=== PATIENT | female | born 1980 | race Caucasian/White ===

== ENCOUNTER 2022-03-10 12:49 | Emergency (ER) | payer OTHER, SELFPAY ==
[2022-03-10 13:20] VITALS: BP 148/83; PULSE 76; RESP 18; TEMP 36.2; O2SAT 100; BMI 30.9
[2022-03-10 14:25] LABS: Add Manual Diff / Slide Review NO; Basophils Absolute Auto 100 /uL (0-100); Eosinophils Absolute Auto 100 /uL (0-450); Eosinophils Percent Auto 1.8 % (2-4); Hematocrit 22.7 % (36-46); Hemoglobin 7.1 g/dL (12.0-16.0); Lymphocytes Absolute Auto 1600 /uL (1100-4500); Lymphocytes Percent Auto 21.9 % (25-40); Mean Corpuscular Volume 61.2 fL (80-100); Monocytes Absolute Auto 600 /uL (0-900); Monocytes Percent Auto 8.3 % (3-14); Neutrophils Absolute Auto 5000 /uL (1500-7000); Platelet Count 407 X10^3/uL (150-400); Red Blood Cell Count 3.72 X10^6/uL (4.0-5.2); Red Cell Distribution Width 19.9 % (11.6-14.8); White Blood Cell Count 7.5 X10^3/uL (4.5-11.0)
[2022-03-10 14:32] LABS: Alanine Aminotransferase 15 IU/L (<35); Albumin 4.5 g/dL (3.5-5.0); Albumin Globulin Ratio 1.4 (1.0-2.8); Alkaline Phosphatase 59 U/L (38-126); Aspartate Aminotransferase 26 IU/L (14-36); BUN Creatinine Ratio 11.9 (6-22); Bilirubin Total 0.5 mg/dL (0.2-1.3); Blood Urea Nitrogen 10 mg/dL (7-17); Calcium 9.3 mg/dL (8.4-10.2); Carbon Dioxide 25 mmol/L (22-32); Chloride 102 mmol/L (98-107); Estimated Glomerular Filt Rate > 60 mL/min (>60); Globulin 3.2 g/dL (1.7-4.1); Glucose 95 mg/dL (70-100); HEMOLYSIS < 15 (0-50); Lipase 46 U/L (23-300); Potassium 3.8 mmol/L (3.4-5.1); Sodium 137 mmol/L (137-145); Total Protein 7.7 g/dL (6.3-8.2)
[2022-03-10 14:44] LABS: Anisocytosis 1+; Poikilocytosis 1+
[2022-03-10 14:59] VITALS: BP 124/79; PULSE 84; RESP 14; O2SAT 100
--- NOTE | 2022-03-10 15:14 | DI.US.S_ITS ---
PROCEDURE: US PELVIC COMPLETE INDICATIONS: pelvic pain, severe anemia. not TECHNIQUE: Real-time scanning was performed of the pelvic organs, with image documentation. Additional endovaginal scanning was necessary due to incomplete visualization of the adnexal and endometrial structures by transabdominal scanning. COMPARISON: None. FINDINGS: Uterus: Uterus is retroverted and enlarged in size at 16.3 x 8.5 x 8.8 cm. The uterus is heterogeneous, with a 7.9 cm fibroid seen. The endometrial stripe is not well seen, secondary to the fibroid. Incidental note is made of nabothian cysts. A mild amount of anechoic cervical fluid can be seen. Ovaries: The right ovary measures 4 x 3.6 x 1.9 cm, with a calculated ovarian volume of 14 point cc. The left ovary measures 22.7 x 1.7 x 1.4 cm, with a calculated ovarian volume of 3.3 cc. The ovaries have a normal sonographic appearance, with a dominant follicle seen involving the right ovary, which is considered to be within physiologic limits. No adnexal masses are seen. Less than 12 follicles can be seen involving each ovary. Normal appearing arterial and venous waveforms are confirmed to each ovary. Other: No pathologic free abdominal or pelvic fluid. IMPRESSION: Negative for ovarian torsion. Enlarged uterus with a 7.9 cm fibroid. We strive to produce accurate, complete, and clear reports of imaging services. To assist us in improving patient care, this report was composed using standard report templates and voice recognition software. Therefore, it may contain abnormal punctuation, insertions and/or omissions. Occasional wrong-word or sound-alike substitutions may occur. Though we review the report and make efforts to correct it, we do recommend that the report be read carefully in proper context to recognize any text inaccuracies. Dictated by: Robbie Ryder M.D. on 03/10/2022 at 16:34 Approved by: Robbie Ryder M.D. on 03/10/2022 at 16:38
--- NOTE | 2022-03-10 15:24 | ED.ABDPAIN ---
HPI - Abdominal Pain <Stefan Santos PA-C - Last Filed: 03/10/22 17:48> General Chief Complaint: Abdominal Pain Stated Complaint: Abd & lower back pain/blader problems Time Seen by Provider: 03/10/22 14:40 Source: patient Mode of arrival: Family Vehicle History of Present Illness HPI narrative: Patient is a 41-year-old female who presents emergency room today with complaint pain with urinating pain with intercourse lower abdominal pain and mild periodic leakage of urine for about 2 months. States the main issue today because of lower abdominal pain increased yesterday. Last menstrual period started on the this month and last pelvic exam was about a year and half ago. Is sexually active and denies history or UTI kidney stones or abdominal pain. Denies chest pain shortness of breath fever chills or nausea vomiting. Also denies any additional symptoms. Related Data Previous Rx's Medication Instructions Recorded naproxen 500 mg tablet (Naprosyn) 500 mg PO BID #60 tabs 03/10/22 Allergies Allergy/AdvReac Type Severity Reaction Status Date / Time No Known Drug Allergies Allergy Verified 03/10/22 13:39 Review of Systems <Stefan Santos PA-C - Last Filed: 03/10/22 17:48> Review of Systems Narrative: R.O.S.: General: No fever, chills or fatigue. Cardiovascular: No chest pain or palpitations Respiratory: No S.O.B. HEENT: No congestion, ear pain, rhinorrhea, sore throat or tinnitus Gastrointestinal: No nausea or vomiting /Pelvic: Pain with urinating pain with intercourse and lower abdominal pain for about 2 months then increased yesterday. Skin: No rash or associated abnormalities Musculoskeletal: No pain in muscles or joints, no limitation of range of motion, no paresthesia or numbness. ?? Neurological: Awake, alert and in not apparent distress. No Headaches, changes in vision or other related neurological concerns. Patient History <ELISHA Grande Last Filed: 03/10/22 17:48> Social History Smoking Status: Former smoker Smoking Status: Former smoker tobacco type: cigarettes alcohol intake frequency: a few times a month Substance Use Type: does not use Exam <ELISHA Grande Last Filed: 03/10/22 17:48> Narrative Exam Narrative: Physical Exam: ? General: normal appearance, well developed, well nourished, alert, and awake. Not in acute distress. ? Head: Normocephalic, no lesions. Chest: Lungs CTAB, no rales, rhonchi or wheezes. ?? Heart: RRR, no murmurs, rubs or gallops. Eyes: PERRLA, EOM's full, conjunctivae clear. ? Neuro: Physiological, no localizing findings, CN3-12 intact. ?? Extremities: Warm, well perfused, FROM, no deformities, no edema. Pelvic: Pelvic exam done by Dr Fields?? Skin: Normal, no rashes, no lesions noted. ?? PSYCHIATRIC: The mood is good, no blunted affect. Speech is clear. Thought process is linear, thought content is appropriate. The voice is without significant inflection. Gastrointestinal: Soft; NT; ND; Pos BS with Neg. rebound tenderness. No scars or major deformities noted on Visual Inspection. Initial Vital Signs Initial Vital Signs: Vital Signs Temperature 97.2 F L 03/10/22 13:20 Pulse Rate 76 03/10/22 13:20 Respiratory Rate 18 03/10/22 13:20 Blood Pressure 148/83 H 03/10/22 13:20 Pulse Oximetry 100 03/10/22 13:20 Oxygen Delivery Method 03/10/22 13:20 <Cassie Fields MD - Last Filed: 03/10/22 18:03> Narrative Exam Narrative: Physical Exam: ? General: normal appearance, well developed, well nourished, alert, and awake. Not in acute distress. ? Head: Normocephalic, no lesions. Chest: Lungs CTAB, no rales, rhonchi or wheezes. ?? Heart: RRR, no murmurs, rubs or gallops. Eyes: PERRLA, EOM's full, conjunctivae clear. ? Neuro: Physiological, no localizing findings, CN3-12 intact. ?? Extremities: Warm, well perfused, FROM, no deformities, no edema. Pelvic: Pelvic exam done by Dr Fields?? Skin: Normal, no rashes, no lesions noted. ?? PSYCHIATRIC: The mood is good, no blunted affect. Speech is clear. Thought process is linear, thought content is appropriate. The voice is without significant inflection. Gastrointestinal: Soft; NT; ND; Pos BS with Neg. rebound tenderness. No scars or major deformities noted on Visual Inspection. DR Fields: Pelvic exam Normal external genitalia. No significant vaginal discharge. No tenderness at vaginal introitus. No bladder tenderness. No cervical motion tenderness. Significantly enlarged uterus 16-18 weeks in size. Initial Vital Signs Initial Vital Signs: Vital Signs Temperature 97.2 F L 03/10/22 13:20 Pulse Rate 76 03/10/22 13:20 Respiratory Rate 18 03/10/22 13:20 Blood Pressure 148/83 H 03/10/22 13:20 Pulse Oximetry 100 03/10/22 13:20 Oxygen Delivery Method 03/10/22 13:20 Course <Stefan Santos PA-C - Last Filed: 03/10/22 17:48> Orders Ordered: ED Orders 03/10/22 14:15 Complete Blood Count AUTO DIFF Stat Comprehensive Metabolic Panel Stat Lipase Stat 03/10/22 15:14 US pelvic complete Stat 03/10/22 16:00 Chlamydia Gonorrhea PCR -URINE Stat 03/10/22 16:01 Wet Prep Tric BV Awilda Stat Vital Signs Vital signs: Vital Signs - 8 hr 03/10/22 13:20 03/10/22 14:59 03/10/22 17:32 Temperature 97.2 F L Pulse Rate 76 84 68 Respiratory Rate 18 14 14 Blood Pressure 148/83 H 124/79 137/68 Pulse Oximetry 100 100 100 Oxygen Delivery Method Room Air Room Air Room Air <Cassie Fields MD - Last Filed: 03/10/22 18:03> Orders Ordered: ED Orders 03/10/22 14:15 Complete Blood Count AUTO DIFF Stat Comprehensive Metabolic Panel Stat Lipase Stat 03/10/22 15:14 US pelvic complete Stat 03/10/22 16:00 Chlamydia Gonorrhea PCR -URINE Stat 03/10/22 16:01 Wet Prep Tric BV Awilda Stat Vital Signs Vital signs: Vital Signs - 8 hr 03/10/22 13:20 03/10/22 14:59 03/10/22 17:32 Temperature 97.2 F L Pulse Rate 76 84 68 Respiratory Rate 18 14 14 Blood Pressure 148/83 H 124/79 137/68 Pulse Oximetry 100 100 100 Oxygen Delivery Method Room Air Room Air Room Air MDM - Abdominal Pain <Stefan Santos PA-C - Last Filed: 03/10/22 17:48> Lab Data Result diagrams: 03/10/22 14:15 03/10/22 14:15 Labs: Lab Results 03/10/22 03/10/22 Range/Units 14:15 14:15 WBC 7.5 (4.5-11.0) X10^3/uL RBC 3.72 L (4.0-5.2) X10^6/uL Hgb 7.1 L (12.0-16.0) g/dL Hct 22.7 L (36-46) % MCV 61.2 L (80-100) fL MCH 19.0 L (26-34) PG MCHC 31.0 (30-36) % RDW 19.9 H (11.6-14.8) % Plt Count 407 H (150-400) X10^3/uL Neut % (Auto) 67.0 (50-75) % Lymph % (Auto) 21.9 L (25-40) % [place] % (Auto) 8.3 (3-14) % Eos % (Auto) 1.8 L (2-4) % Baso % (Auto) 1.0 (0-2) % Neut # (Auto) 5000 (6698-6792) /uL Lymph # (Auto) 1600 (8091-1698) /uL [place] # (Auto) 600 (0-900) /uL Eos # (Auto) 100 (0-450) /uL Baso # (Auto) 100 (0-100) /uL RBC Morphology Not Reportable Poikilocytosis 1+ H Anisocytosis 1+ H Sodium 137 (137-145) mmol/L Potassium 3.8 (3.4-5.1) mmol/L Chloride 102 (98-107) mmol/L Carbon Dioxide 25 (22-32) mmol/L BUN 10 (7-17) mg/dL Creatinine 0.84 (0.52-1.04) mg/dL Estimated GFR > 60 (>60) mL/min BUN/Creatinine Ratio 11.9 (6-22) Glucose 95 (70-100) mg/dL Calcium 9.3 (8.4-10.2) mg/dL Total Bilirubin 0.5 (0.2-1.3) mg/dL AST 26 (14-36) IU/L ALT 15 (<35) IU/L Alkaline Phosphatase 59 (38-126) U/L Total Protein 7.7 (6.3-8.2) g/dL Albumin 4.5 (3.5-5.0) g/dL Globulin 3.2 (1.7-4.1) g/dL Albumin/Globulin Ratio 1.4 (1.0-2.8) Lipase 46 (23-300) U/L Point of care testing: Point of Care Testing Test Results Negative Urine Dip Bedside Urine Glucose Negative Bedside Urine Bilirubin - Negative Bedside Urine Ketone - Negative Urine Specific [place] 1.010 Bedside Urine Occult Blood - Negative Bedside Urine pH 6.0 Bedside Urine Protein - Negative Bedside Urine Urobilinogen - Negative Bedside Urine Nitrite - Negative Bedside Urine Leukocytes - Negative Esterase MDM Narrative Medical decision making narrative: Patient is a 41-year-old female a complaint increased abdominal pain that started this weekend and has not painful urination and was normal and a and low back pain. Patient states she is sexually active and her last pelvic exam was about a year and a half ago. Patient admits that her last menstrual period started on the of this month. Denies any discharge or abnormal smells or urine. Pelvic exam was done by Dr. Tracy. Abdominal ultrasound was done and revealed enlarged uterus and the uterine fibroid. She was discharged and referred to OBGYN and [place] and the positions. She was also given the contact information. Patient agrees this plan <Cassie Fields MD - Last Filed: 03/10/22 18:03> Lab Data Labs: Lab Results 03/10/22 03/10/22 Range/Units 14:15 14:15 WBC 7.5 (4.5-11.0) X10^3/uL RBC 3.72 L (4.0-5.2) X10^6/uL Hgb 7.1 L (12.0-16.0) g/dL Hct 22.7 L (36-46) % MCV 61.2 L (80-100) fL MCH 19.0 L (26-34) PG MCHC 31.0 (30-36) % RDW 19.9 H (11.6-14.8) % Plt Count 407 H (150-400) X10^3/uL Neut % (Auto) 67.0 (50-75) % Lymph % (Auto) 21.9 L (25-40) % [place] % (Auto) 8.3 (3-14) % Eos % (Auto) 1.8 L (2-4) % Baso % (Auto) 1.0 (0-2) % Neut # (Auto) 5000 (8698-5773) /uL Lymph # (Auto) 1600 (1777-4784) /uL [place] # (Auto) 600 (0-900) /uL Eos # (Auto) 100 (0-450) /uL Baso # (Auto) 100 (0-100) /uL RBC Morphology Not Reportable Poikilocytosis 1+ H Anisocytosis 1+ H Sodium 137 (137-145) mmol/L Potassium 3.8 (3.4-5.1) mmol/L Chloride 102 (98-107) mmol/L Carbon Dioxide 25 (22-32) mmol/L BUN 10 (7-17) mg/dL Creatinine 0.84 (0.52-1.04) mg/dL Estimated GFR > 60 (>60) mL/min BUN/Creatinine Ratio 11.9 (6-22) Glucose 95 (70-100) mg/dL Calcium 9.3 (8.4-10.2) mg/dL Total Bilirubin 0.5 (0.2-1.3) mg/dL AST 26 (14-36) IU/L ALT 15 (<35) IU/L Alkaline Phosphatase 59 (38-126) U/L Total Protein 7.7 (6.3-8.2) g/dL Albumin 4.5 (3.5-5.0) g/dL Globulin 3.2 (1.7-4.1) g/dL Albumin/Globulin Ratio 1.4 (1.0-2.8) Lipase 46 (23-300) U/L Point of care testing: Point of Care Testing Test Results Negative Urine Dip Bedside Urine Glucose Negative Bedside Urine Bilirubin - Negative Bedside Urine Ketone - Negative Urine Specific [place] 1.010 Bedside Urine Occult Blood - Negative Bedside Urine pH 6.0 Bedside Urine Protein - Negative Bedside Urine Urobilinogen - Negative Bedside Urine Nitrite - Negative Bedside Urine Leukocytes - Negative Esterase Imaging Data pelvic ultrasound: Radiologist's Impression: FINDINGS:? ?? Uterus:? Uterus is retroverted and enlarged in size at 16.3 x 8.5 x 8.8 cm.? The uterus is heterogeneous, with a 7.9 cm fibroid seen.? The endometrial stripe is not well seen, secondary to the fibroid. Incidental note is made of nabothian cysts.? A mild amount of anechoic cervical fluid can be seen. ? Ovaries:? The right ovary measures 4 x 3.6 x 1.9 cm, with a calculated ovarian volume of 14 point cc. The left ovary measures 22.7 x 1.7 x 1.4 cm, with a calculated ovarian volume of 3.3 cc. The ovaries have a normal sonographic appearance, with a dominant follicle seen involving the right ovary, which is considered to be within physiologic limits.? No adnexal masses are seen.? Less than 12 follicles can be seen involving each ovary.? ? ? Normal appearing arterial and venous waveforms are confirmed to each ovary.? ? Other:? No pathologic free abdominal or pelvic fluid. ? ? IMPRESSION:? Negative for ovarian torsion. ? Enlarged uterus with a 7.9 cm fibroid. ? ? We strive to produce accurate, complete, and clear reports of imaging services. To assist us in improving patient care, this report was composed using standard report templates and voice recognition software. Therefore, it may contain abnormal punctuation, insertions and/or omissions. Occasional wrong-word or sound-alike substitutions may occur. Though we review the report and make efforts to correct it, we do recommend that the report be read carefully in proper context to recognize any text inaccuracies. ? ? Dictated by: Robbie Ryder M.D. on 03/10/2022 at 16:34 ? ? MDM Narrative Medical decision making narrative: Patient is a 41-year-old female a complaint increased abdominal pain that started this weekend and has not painful urination and was normal and a and low back pain. Patient states she is sexually active and her last pelvic exam was about a year and a half ago. Patient admits that her last menstrual period started on the 13th of this month. Denies any discharge or abnormal smells or urine. Pelvic exam was done by Dr. Tracy. Patient is examined and lab results reviewed. She shows significant microcytic anemia with hemoglobin at 7.1 with hemodynamic stability suggesting chronic and ongoing blood loss with physiologic adaptations. She also complains of urinary incontinence worsening over the last 2 months that seems to be on associated with any precipitated findings. Specifically is not urge or stress related. Some days is not a problem at all and other days simply walking across the house she finds that she is leaking urine. Uterus is significantly enlarged, 16 weeks in size with 8 cm fibroid centrally interrupting endometrial stripe. Gonorrhea and chlamydia are pending, moderate clue cells occasional yeast and no Trichomonas appreciated on wet prep. Will ask her to follow-up with OBGYN. Recommended Naprosyn b.i.d. for pelvic pain and to try and prevent quite as much bleeding during her menstrual cycles. Questions answered and she is safe for discharge home Discharge Plan Departure Patient Disposition: Home Clinical Impression: Bulky or enlarged uterus, Microcytic anemia, Pelvic pain Fibroid, uterine Qualifiers: Uterine leiomyoma location: unspecified location Qualified Code(s): D25.9 - Leiomyoma of uterus, unspecified Urinary incontinence Qualifiers: Urinary Incontinence type: unspecified incontinence Qualified Code(s): R32 - Unspecified urinary incontinence Instructions: DI for Uterine Fibroids Activity Restrictions/Additional Instructions: Thank you for coming in today You have a very enlarged uterus and a large uterine fibroid. This is likely causing the low pelvic pain that you are experiencing. The fibroid is in the center of your uterus and involves the endometrial lining which likely explains the heavy menses that you have been having. With these very heavy menses you have become significantly anemic. You need to follow-up with Dr. Cristina or 1 of her partners in our OBGYN clinic. Please call the clinic tomorrow at [phone] explain that you were in the emergency department, diagnosed with significantly enlarged uterus, uterine fibroids and significant anemia and need to be seen for consultation. In the meantime, please use Naprosyn twice a day for pelvic cramping and please make sure that you take this twice a day on a scheduled basis starting the day prior to your menses and continuing through your cycle. The Naprosyn has been electronically transmitted to [facility] in [place] Doing all you can to increase iron with iron supplementations, green leafy vegetables and animal protein will all be helpful. Iron is best absorbed with and acid environment. If your taking iron supplements taking them with orange juice will help with overall absorption. Regarding your urinary incontinence, I suspect that it is related to your enlarged uterus and would encourage you to discuss that with the OBGYN as well. I wish you well Prescriptions: New naproxen [Naprosyn] 500 mg tablet 500 mg PO BID Qty: 60 0RF Referrals: Natty Cristina MD [Physician] - Taryn Murray MD [Physician] - Visit Report Forms: Patient Portal/API
[2022-03-10 17:32] VITALS: BP 137/68; PULSE 68; RESP 14; O2SAT 100
[2022-03-10 18:24] LABS: Urine N gonorrhoeae NOT DETECTED
[2022-03-10 18:37] LABS: Urine Chlamydia NOT DETECTED
== END 2022-03-10 17:55 | disposition home or self-care (01) ==
PROVIDERS: Emergency Medicine; Emergency Provider Physician Assistant
DX: R10.2 Pelvic and perineal pain (principal); D25.9 Leiomyoma of uterus, unspecified; R32 Unspecified urinary incontinence; N85.2 Hypertrophy of uterus; D50.9 Iron deficiency anemia, unspecified
CPT/HCPCS: 36415; 76830; 76856; 80053; 81003; 81025; 83690; 85025; 87210; 87491; 87591; 93975; 99283; 99284

== ENCOUNTER → 2022-04-22 10:38 | Outpatient (CLI) | payer OTHER, SELFPAY ==
[2022-04-22 12:36] LABS: Add Manual Diff / Slide Review NO; Basophils Absolute Auto 0 /uL (0-100); Basophils Percent Auto 0.4 % (0-2); Eosinophils Absolute Auto 100 /uL (0-450); Eosinophils Percent Auto 1.5 % (2-4); Hematocrit 29.4 % (36-46); Lymphocytes Absolute Auto 1700 /uL (1100-4500); Lymphocytes Percent Auto 18.4 % (25-40); Mean Corpuscular HGB Conc 30.7 % (30-36); Mean Corpuscular Hemoglobin 20.9 PG (26-34); Mean Corpuscular Volume 68.1 fL (80-100); Monocytes Absolute Auto 600 /uL (0-900); Monocytes Percent Auto 6.2 % (3-14); Neutrophils Absolute Auto 6700 /uL (1500-7000); Neutrophils Percent Auto 73.5 % (50-75); Platelet Count 434 X10^3/uL (150-400); Red Blood Cell Count 4.31 X10^6/uL (4.0-5.2); Red Cell Distribution Width 26.5 % (11.6-14.8); White Blood Cell Count 9.1 X10^3/uL (4.5-11.0)
[2022-04-22 13:13] LABS: Anisocytosis 3+; Hypochromasia 2+; Platelet Estimate Increased on smear; Poikilocytosis 3+
[2022-04-22 14:23] LABS: TSH w/ Reflex to FT4 1.21 uIU/mL (0.47-4.68)
== END ==
PROVIDERS: PCP Student in an Organized Health Care Education/Training Program; Referring Provider Obstetrics & Gynecology; Visit Provider Obstetrics & Gynecology
DX: D64.9 Anemia, unspecified (principal); N92.0 Excessive and frequent menstruation with regular cycle
CPT/HCPCS: 36415; 84443; 85025

== ENCOUNTER → 2022-10-29 14:12 | Outpatient (CLI) | payer OTHER, SELFPAY ==
[2022-10-29 15:33] LABS: Add Manual Diff / Slide Review NO; Basophils Absolute Auto 0 /uL (0-100); Basophils Percent Auto 0.5 % (0-2); Eosinophils Absolute Auto 200 /uL (0-450); Hematocrit 31.5 % (36-46); Hemoglobin 10.3 g/dL (12.0-16.0); Lymphocytes Absolute Auto 2300 /uL (1100-4500); Lymphocytes Percent Auto 27.9 % (25-40); Mean Corpuscular HGB Conc 32.6 % (30-36); Mean Corpuscular Hemoglobin 25.6 PG (26-34); Mean Corpuscular Volume 78.7 fL (80-100); Monocytes Absolute Auto 600 /uL (0-900); Monocytes Percent Auto 7.1 % (3-14); Neutrophils Absolute Auto 5000 /uL (1500-7000); Neutrophils Percent Auto 61.5 % (50-75); Platelet Count 387 X10^3/uL (150-400); Red Blood Cell Count 4.01 X10^6/uL (4.0-5.2); Red Cell Distribution Width 16.1 % (11.6-14.8); White Blood Cell Count 8.1 X10^3/uL (4.5-11.0)
== END ==
PROVIDERS: PCP Student in an Organized Health Care Education/Training Program; Referring Provider Obstetrics & Gynecology; Visit Provider Obstetrics & Gynecology
DX: D50.0 Iron deficiency anemia secondary to blood loss (chronic) (principal); N94.6 Dysmenorrhea, unspecified
CPT/HCPCS: 36415; 85025

== ENCOUNTER 2022-11-08 08:18 | Day surgery (SDC) | payer OTHER, SELFPAY ==
[2022-11-06 10:19] VITALS: BMI 33.1
[2022-11-08] VITALS (8 sets, daily range): BP systolic 97–141; BP diastolic 40–87; PULSE 64–84; RESP 13–18; TEMP 36.1–36.8; O2SAT 95–100; BMI 33.1
--- NOTE | 2022-11-08 | PATH_ITS ---
[facility] Accession Number: [id number] No. of containers..01 Tissue . 01 Material submitted: . uterus - BILATERAL FALLOPIAN TUBES,AND UTERUS . 01 Diagnosis: Bilateral Fallopian Tube And Uterus, Supracervical Hysterectomy and Bilateral Salpingectomy: Proliferative endometrium; no atypical hyperplasia and no malignancy. Benign leiomyomata. Complete cross-section of fimbriated bilateral fallopian tubes with no significant diagnostic alterations. [facility] 11/15/2022 1024 Local . 01 Electronically signed: . Suzy Salazar MD, Pathologist NPI- [id number] . 01 Gross description: . The specimen is received in formalin labeled with the patient's name, , and bilateral fallopian tubes and uterus, and consists of a disrupted uterus weighing 357 g and aggregating to 15.4 x 15.2 x 8.5 cm with attached fimbriated fallopian tube (5.3 x 1.0 cm) and detached fimbriated fallopian tube (3.7 x 0.8 cm) with no cervix or additional adnexa identified. The serosa is can and wrinkled with no evidence of hemorrhage or adhesion. The endometrium is can and velvety and averages 0.1 cm thick. The myometrium is can and trabecular with multiple whorled areas and several well-circumscribed nodules measuring up to 1.2 cm in greatest dimension with no hemorrhage or necrosis identified. The attached fimbriated fallopian tube has can, smooth serosa with a cystic structure near the fimbriated end measuring 0.4 cm in greatest dimension. Sectioning reveals an unremarkable stellate lumen. The detached fallopian tube has can, smooth serosa with no cystic structures identified. Sectioning reveals an unremarkable stellate lumen. [employer] sections are submitted as follows: A1: Possible full-thickness section. A2: Endometrium. A3-A4: Business Line Manager whorled areas and nodules. A5: Serosa. A6: Attached fallopian tube to include one-half of bisected fimbriae and cross sections. A7: Detached fallopian tube to include one-half of bisected fimbriae and cross sections. ([id number]) /FRR 11/13/2022 0313 Local . 01 Pathologist provided ICD-10: D25.9, N92.1 . 01 CPT . 965843 Specimen Comment: A courtesy copy of this report has been sent to [phone] Performed at: 01 [facility] [address] [place] [address], [place], [place] [id number] MD Ilya Stoll MD Phone: [phone]
[2022-11-08] MEDS: CEFAZOLIN 2 GM/100 ML PREMIX 100 ML IV (10:04)
--- NOTE | 2022-11-08 10:17 | PM.PREOP ---
Pre-operative Note COVID-19 Criteria for continued procedure: Delay expected to result in less-positive ultimate med/surg outcome Interval Note History & Physical reviewed/Exam performed by Physician: Yes Changes to H&P: No H&P completed within 30 days and has changed as indicated here:: 10/29/22
[2022-11-08 10:23] LABS: Add Manual Diff / Slide Review NO; Basophils Absolute Auto 100 /uL (0-100); Basophils Percent Auto 1.1 % (0-2); Eosinophils Absolute Auto 100 /uL (0-450); Eosinophils Percent Auto 2.5 % (2-4); Hematocrit 30.8 % (36-46); Lymphocytes Absolute Auto 1700 /uL (1100-4500); Lymphocytes Percent Auto 29.3 % (25-40); Mean Corpuscular HGB Conc 32.4 % (30-36); Mean Corpuscular Hemoglobin 25.4 PG (26-34); Mean Corpuscular Volume 78.3 fL (80-100); Monocytes Absolute Auto 400 /uL (0-900); Monocytes Percent Auto 6.6 % (3-14); Neutrophils Absolute Auto 3600 /uL (1500-7000); Neutrophils Percent Auto 60.5 % (50-75); Platelet Count 382 X10^3/uL (150-400); Red Blood Cell Count 3.94 X10^6/uL (4.0-5.2); Red Cell Distribution Width 16.5 % (11.6-14.8); White Blood Cell Count 5.9 X10^3/uL (4.5-11.0)
--- NOTE | 2022-11-08 10:57 | SUR.OPER ---
Lithotomy on padded OR bed. [place] Pad Positioner under torso. Head on pillow, arms padded and tucked at sides. Legs secured in padded yellow fins stirrups.
[2022-11-08] MEDS: BUPIVACAINE 0.5% (PF) 30 ML, EPINEPHrine 0.15 MG INJ (11:18)
[2022-11-08] MEDS: LACTATED RINGERS 1,000 ML 100 ML IV (11:28)
[2022-11-08] MEDS: ROPIVACAINE 0.2% PF 2 MG/ML 20ML AMP 20 ML INJ (11:34)
--- NOTE | 2022-11-08 12:28 | PM.GYNOP.1 ---
Operative Date/Time/Diagnoses Date of procedure: 11/08/22 Time of procedure: 12:28 Pre-op diagnosis: Enlarged fibroid uterus Pelvic pain Post-op diagnosis: same Procedure & Clinicians Procedure: Procedures Operation Date: 11/08/22 10:15 Actual Procedure Side Surgeon p Laparoscopy, Diagnostic, CARPET JACK, poss. [facility] , poss. bilateral salpingectomy, poss. open KAILA Natty Cristina MD Indications: Enlarged fibroid uterus Pelvic pain Surgeon: Natty Cristina Human Resources Operations Manager: Litzy Tobar Anesthesia Type: General and Local Operative Notes Findings: 16 week size fibroid uterus Fundus to anterior abdominal wall thick adhesion Normal tubes and ovaries Normal liver Normal appendix Closure Type: primary Specimen(s): left tube, right tube and uterus Applied: catheter (Removed at the end of the case) Estimated blood loss (mL): 100 Blood products transfused: none Procedure in detail: The patient was taken to the operating room where she was placed in the dorsal supine position. After adequate general endotracheal anesthesia was achieved, she was placed in the dorsal lithotomy position, and prepped and draped in the usual sterile fashion. A timeout was performed. A bivalve speculum was placed into the vagina and the anterior lip of the cervix grasped with a single-tooth tenaculum. The cervical os was sequentially dilated until the ZUMI uterine manipulator could pass easily into the endometrial cavity. The single-tooth tenaculum was removed from the anterior lip of the cervix, and the bivalve speculum was removed from the vagina. Attention was then turned to the abdomen where 6 mL of half percent Marcaine with epinephrine were injected above the umbilical fold. A 5 mm incision was made. The veress needle was placed into the peritoneal cavity, and its placement confirmed by aspiration and drop test. The veress needle was removed. A 5 mm trocar was placed without difficulty. 2 other incisions were made 4 cm lateral to the umbilicus after 5 mL of half percent Marcaine with epinephrine were injected. These were 5 mm incisions. Two, 5 mm trocars were placed under direct visualization. Using the Powerseal, the thick adhesion between the uterus and anterior abdominal wall was taken down with the Powerseal with cautery and cut. Hemostasis was achieved. The right tube was grasped with an atraumatic grasper. Using the Powerseal, the mesosalpinx was cauterized and cut all the way down to the cornua of the uterus. The cornua of the uterus was then grasped with an atraumatic grasper. The utero-ovarian ligaments were cauterized and cut. The round ligament and broad ligament were cauterized and cut. Hemostasis was achieved. The bladder flap was created using the Powerseal with cautery and cut long-term across. The uterine arteries on the right side were extensively cauterized. All of this was repeated on the left side. The remainder of the bladder flap was created using the Powerseal, and the bladder taken down off the lower uterine segment and cervix. Using the Linaloop, the cervix was amputated from the uterus 2 cm above the uterosacral ligaments, after the ZUMI uterine manipulator was removed from the uterus and a moistened sponge stick was placed in the vagina. There was a small amount of bleeding noted from the posterior edge of the cervix, and this was cauterized for hemostasis. 6 mL of half percent Marcaine with epinephrine were injected thru the previous Pfannenstiel incision. A 12mm incision was made. A 12 mm trocar was placed under direct visualization. The trocar was removed. An Endobag was placed through the suprapubic incision and the uterus and tubes were placed into the Endobag. The edges of the endobag were brought through the skin. The uterus was grasped with a Doug. An Ze was placed into the endobag. The uterus was morcellated in 2 pieces. The tubes were also removed. The Endobag and Ze were removed from the peritoneal cavity. The fascia was closed with 0-vicryl in a running fashion. The abdomen was reinsufflated. The pelvis was copiously irrigated with warm normal saline. No bleeding was noted. 20 mL of 0.2% ropivacaine were placed over the pelvic pedicles. The instruments were removed from the abdomen. The CO2 was allowed to escape. The subcutaneous layer on the lower incision was closed with 2 simple interrupted sutures with 2-0 vicryl. All of the incisions were closed with 4-0 Biosyn in a subcuticular fashion. Steri strips and Allevyn dressings were placed. The moistened sponge stick was removed from the vagina. Sponge, lap, and instrument counts were correct x 2. The patient tolerated the procedure well, was taken to PACU in stable condition. Complications: none Post-operative Condition: stable Disposition: PACU Plan for aftercare: Home after recovery
[2022-11-08] MEDS: OXYCODONE/ACETAMINOPHEN 5/325 TABLET 1 TAB PO (12:29)
--- NOTE | 2022-11-08 13:29 | SUR.PHASEII ---
Patient ambulating to the bathroom independently and voided small amount of clear yellow urine. Discharged home with in stable condition.
== END 2022-11-08 13:30 | disposition home or self-care (01) ==
LOC: OR 08:20 → AC 08:20
PROVIDERS: PCP Student in an Organized Health Care Education/Training Program; Referring Provider Obstetrics & Gynecology; Visit Provider Obstetrics & Gynecology
PROC: 0UT94ZL Resection of Uterus, Supracervical, Percutaneous Endoscopic Approach (ICD-10-PCS; CPT 58542; principal; 2022-11-08 10:15)
DX: D25.9 Leiomyoma of uterus, unspecified (principal); N92.1 Excessive and frequent menstruation with irregular cycle; N73.6 Female pelvic peritoneal adhesions (postinfective)
CPT/HCPCS: 58542; 36415; 85025; J0171; J0690; J1100; J1885; J2250; J2405; J2704; J2795; J3010; J3490

== ENCOUNTER → 2023-07-24 13:25 | Outpatient (CLI) | payer OTHER, SELFPAY ==
--- NOTE | 2023-07-24 13:26 | DI.RAD.S_ITS ---
PROCEDURE: FL BARIUM SWALLOW INDICATIONS: Dysphagia, unspecified COMPARISON: None. FINDINGS: Function: There is normal esophageal peristalsis. There is somewhat poor relaxation of the lower esophageal sphincter without fixed stenosis. This results in mildly delayed clearance of the esophagus, specially with calibrated barium tablet. Mild transient elicited gastroesophageal reflux. There is mild delayed transit of a calibrated barium tablet through the esophagus into the stomach. Morphology: Air-contrast images demonstrate normal mucosal morphology. Single contrast views show no esophageal strictures, extrinsic mass effects, or diverticula. Limited images of the stomach demonstrate normal appearance. Limited images of the pharynx were also obtained due to patient reported symptoms, and no significant abnormality was seen. IMPRESSION: 1. Mildly delayed clearance of the esophagus, possibly related to incomplete or delayed relaxation of the esophageal sphincter. No fixed stenosis is seen. No significant esophageal dilation to suggest achalasia. 2. Mild transient elicited gastroesophageal reflux to the midesophagus. Approved by: Patrick Dodd M.D. on 07/24/2023 at 15:08
== END ==
LOC: RAD 13:25
PROVIDERS: PCP Student in an Organized Health Care Education/Training Program; Referring Provider Student in an Organized Health Care Education/Training Program; Visit Provider Student in an Organized Health Care Education/Training Program
DX: R13.10 Dysphagia, unspecified (principal)
CPT/HCPCS: 74220